=== PATIENT | male | born 1980 | race Caucasian/White ===

== ENCOUNTER 2021-02-15 11:14 | Emergency (ER) | payer MEDICAID ==
[~2021-02-15] VITALS: Ht 188 cm; Wt 85.1 kg
[2021-02-15 11:16] VITALS: BP 134/75
--- NOTE | 2021-02-15 11:35 | NUR ---
ERMD AT BEDSIDE FOR EVAL.
--- NOTE | 2021-02-15 12:21 | NUR ---
CARLOZ REMOVED, POC/DC INSTRUCTIONS REVIEWED
== END 2021-02-15 12:58 | disposition home or self-care (01) ==
LOC: ED 11:38
DX: Z48.02 Encounter for removal of sutures (principal); Z48.01 Encounter for change or removal of surgical wound dressing; F17.210 Nicotine dependence, cigarettes, uncomplicated
CPT/HCPCS: 99281